=== PATIENT | male | born 1960 | race African-American/Black ===

== ENCOUNTER 2016-12-27 12:47 | Observation (INO) | payer OTHER ==
--- NOTE | ~2016-12-27 | CN ---
Consultation Report [facility] [address] [place]. [address] NAME: MARCIE ARCHIBALD : 62 STATUS : DIS Acosta PAT#: [id number] AGE: 56 ADM/REG DATE : 12/27/16 MR#: [id number] REPORT SERV DATE: 12/29/16 DICTATED BY: JUAN PABLO SMITH DATE: 12/29/16 REPORT STATUS : Draft TRANSCRIBED BY: MODL DATE: 12/29/16 NEPHROLOGY CONSULTATION DATE OF CONSULTATION: 12/29/2016 REQUESTING: Kee Bedoya M.D. REASON FOR CONSULTATION: Acute kidney injury/chronic kidney disease. HISTORY OF PRESENT ILLNESS: Mr. Archibald is a very pleasant 56-year-old -Dominican male, with previous chronic kidney disease. He was seen by Dr. Byrd in 2012, at which time creatinine was 2.4. Unfortunately, there are no office records available at this time of dictation today. He apparently lost insurance previously and did not follow up as directed with [facility]. He was admitted here on 12/27/2016, with creatinine 2.0. He underwent workup including echo, which showed ejection fraction of 35%, severe diastolic dysfunction, and moderate LVH. Renal ultrasound showed nonobstructing kidney stones and Doppler ultrasound showed normal resistive indices and no renal artery stenosis. Chest x- ray showed cardiomegaly without edema and stress test showed mild inferior ischemia. Creatinine went up to 2.3 today and cardiac catheterization was canceled. Troponin has been 0.88 to 0.92 since admission. Urinalysis has shown trace proteinuria. His ARB has been discontinued. PAST MEDICAL HISTORY: 1. Chronic kidney disease, baseline creatinine approximately 2 to 2.4 (?). 2. Hypertension, on ARB. 3. EF 35%. 4. LVH. CURRENT MEDICATIONS: Aspirin 81 mg daily, Lipitor, Imdur, Coreg, hydralazine, amlodipine, clonidine, and Pepcid. FAMILY HISTORY: No ESRD. SOCIAL HISTORY: He is single. 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 Nonsmoker. Lives in [place]. REVIEW OF SYSTEMS: Significant for events as per HPI. PHYSICAL EXAMINATION: VITAL SIGNS: Temperature 98.3, pulse 62, respirations 16, blood pressure 139/83, 98% saturation on room air. GENERAL: He is a very pleasant, middle-aged -Dominican male, awake, alert, oriented, and cooperative with the exam. He is a good historian. He is in no distress, lying flat in Consultation Report [place] [id number] [facility] [place]. [address] NAME: MARCIE ARCHIBALD : 62 STATUS : DIS Acosta PAT#: [id number] AGE: 56 ADM/REG DATE : 12/27/16 MR#: [id number] REPORT SERV DATE: 12/29/16 DICTATED BY: JUAN PABLO SMITH DATE: 12/29/16 REPORT STATUS : Draft TRANSCRIBED BY: KURT DATE: 12/29/16 his hospital stretcher. HEENT: Sclerae without icterus. Conjunctivae not injected. Oropharynx is clear. NECK: No JVD. LUNGS: He has clear lungs anteriorly without dyspnea or tachypnea on room air. HEART: Regular rate and rhythm with audible S4. ABDOMEN: Soft, nontender, nondistended. Bowel sounds present throughout. No rebound or guarding. EXTREMITIES: With trace edema. SKIN: Without rash. PSYCHIATRIC: Mood and affect are appropriate. : Deferred. There is no Sparks catheter in place. NEURO: Grossly nonfocal. MUSCULOSKELETAL: Shows no gout or tenosynovitis. LABORATORY DATA: Sodium 139, potassium 3.2, bicarbonate 26, BUN 32, creatinine 2.3. GFR 35 mL/minute. Calcium 8.9, magnesium 2.1, phosphorus 2.8, albumin 3.2. White count 5000, without eosinophilia. INR 1.1. Hemoglobin 12.7, platelets 274,000. ASSESSMENT AND PLAN: Mr. Archibald has stage 3 chronic kidney disease, hypertension, left ventricular hypertrophy, ejection fraction of 35%, proteinuria, and abnormal stress test. I suspect his proteinuria, chronic kidney disease, and echo findings most likely represent longstanding poorly controlled hypertension and resultant nephrosclerosis (?). No need for renal biopsy at this time. Agree with holding ARB. His baseline creatinine is unknown to me at this time. His cardiac catheterization has been canceled and he is scheduled to go home later today. He will need close outpatient followup with Nephrology in the future. This was stressed to him in great detail. I think it is reasonable at this time to discharge as long as he follows up in the office. Another consideration is hyperaldosteronism with his alkalosis and hypokalemia. We will check renin and aldosterone levels and consider addition of Inspra as an outpatient should he remain hypokalemic. NC/MODL Juan Pablo Smith M.D. / [id number] CC: Kee Bedoya M.D.
--- NOTE | ~2016-12-27 | PRECARD ---
H&P [facility] [address] [place]. [address] NAME: MARCIE ARCHIBALD : 62 STATUS : ADM Acosta PAT#: [id number] AGE: 56 ADM/REG DATE : 12/27/16 MR#: [id number] REPORT SERV DATE: 12/27/16 DICTATED BY: KAYKAY JEONG DATE: 12/27/16 REPORT STATUS : Draft TRANSCRIBED BY: MODVale DATE: 12/27/16 DATE OF ADMISSION: 12/27/2016 CHIEF COMPLAINT: Palpitations. REASON FOR ADMISSION: Abnormal troponin. SOURCE: The patient and the chart. HISTORY OF PRESENT ILLNESS: Mr. Archibald is a very pleasant 56-year-old black man with a history of hypertension and chronic kidney disease, who reports he had a cardiac catheterization in 2003, which revealed no blockages. He was in his usual state of health until yesterday and today when he noticed heart fluttering on and off lasting about 45 seconds at a time. He did not have any syncope or dizziness. He did not have any chest pain at any time. He has not had any shortness of breath. No swelling. His blood pressure went up to 210/130. He came to [facility], where a troponin was drawn and it was abnormal at 0.99, and he was admitted to Cardiology. REVIEW OF SYSTEMS: All other systems are negative. ALLERGIES: NO KNOWN DRUG ALLERGIES. MEDICATIONS: As per his home list, included amlodipine, clonidine, metoprolol, and valsartan HCT. CARDIAC RISK FACTORS: Hypertension, former tobacco. Denies diabetes, cholesterol, or family history. FAMILY HISTORY: Father had myocardial infarction in his 80s. SOCIAL HISTORY: The patient lives in [place]. He is single. He has six children, alive and well. 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 PAST MEDICAL HISTORY: Significant for congestive heart failure diagnosed 4 years ago. Cardiac catheterization in 2003 at [place] revealed no blockages. Chronic kidney disease and status post herniorrhaphy. PHYSICAL EXAMINATION: GENERAL: He is well-developed, well-nourished, obese middle-aged black man, in no acute distress. VITAL SIGNS: Blood pressure is 171/103, pulse 73, and temperature 97.2. HEENT: Sclerae anicteric. Lips without cyanosis. Carotids 2+ and symmetrical. No bruits. No JVD. No thyromegaly. LUNGS: Clear to auscultation. No use of accessory muscles. HEART: Regular rate and rhythm without murmur, gallop, or rub. H&P [address] [address] NAME: MARCIE ARCHIBALD : 62 STATUS : ADM Acosta PAT#: [id number] AGE: 56 ADM/REG DATE : 12/27/16 MR#: [id number] REPORT SERV DATE: 12/27/16 DICTATED BY: KAYKAY JEONG DATE: 12/27/16 REPORT STATUS : Draft TRANSCRIBED BY: MODL DATE: 12/27/16 ABDOMEN: Positive bowel sounds. Soft, nontender. EXTREMITIES: Pulses are 2+ and symmetrical. No cyanosis, clubbing, or edema. BACK: No CVA tenderness. MUSCULOSKELETAL: Good tone. NEURO: Alert and oriented x3. EKG: Reveals normal sinus rhythm, possible left atrial enlargement. Left ventricular hypertrophy. LABORATORY EXAMINATION: Sodium 137, potassium 3.5, chloride 99, CO2 is pending, BUN 22, creatinine 1.98, and glucose 71. White count 6.6, hemoglobin 14.1, hematocrit 42.0, and platelets 302,000. TSH is 0.619. Troponin of 0.99. CPK and MB are not yet available. IMPRESSION: 1. Palpitations of unclear significance. 2. Abnormal troponin of unclear significance. 3. Hypertension with left ventricular hypertrophy by EKG, under suboptimal control. 4. Acute kidney injury on chronic kidney disease. 5. History of congestive heart failure with unknown left ventricular systolic function. 6. Obesity. 7. Former tobacco use. RECOMMENDATIONS: 1. Check serial EKGs and enzymes. 2. Telemetry. 3. Antihypertensive therapy. 4. Stop valsartan HCT. 5. Cautious IV fluid volume repletion. 6. Echocardiogram. 7. Renal ultrasound and renal artery ultrasound to look for any evidence of renal artery stenosis. 8. Check CPK and MB in addition to troponin q.8 h. x3. 9. EKG in a.m. 10.Further recommendations following the above. ANNE/MODL Kaykay Jeong M.D. / [id number] CC: Kaykay Jeong M.D.
[2016-12-27 13:51] LABS: BASOPHILS 0.5 %; BASOPHILS ABSOLUTE 0.03 10/3/uL (0.0-0.16); EOSINOPHILS 0.3 %; EOSINOPHILS ABSOLUTE 0.02 10/3/uL (0.0-0.53); ER CBC TAT 0 Hrs 05 Mins; HEMOGLOBIN 14.1 g/dL (13.6-17.8); IMMATURE GRANULOCYTES 0.2 %; IMMATURE GRANULOCYTES ABSOLUTE 0.01 10/3/uL (0.0-0.11); LYMPHOCYTES ABSOLUTE 0.99 10/3/uL (0.67-4.30); MANUAL DIFF NO %; MEAN CORPUS HGB CONC 33.6 g/dL (32.0-36.0); MEAN CORPUSCULAR VOLUME 80.5 fL (80-100); MEAN PLATELET VOLUME 10.1 fL (9.2-13.0); MONOCYTES 7.3 %; MONOCYTES ABSOLUTE 0.48 10/3/uL (0.21-1.20); NEUTROPHILS 76.7 %; NEUTROPHILS ABSOLUTE 5.07 10/3/uL (2.02-8.40); PLATELET COUNT 302 10/3/uL (150-400); RBC DISTRIBUTION WIDTH 14.4 % (12.0-16.0); RED CELL COUNT 5.22 10/6/uL (4.7-6.1); WHITE BLOOD CELLS 6.6 10/3/uL (4.5-10.5)
[2016-12-27 14:03] LABS: INTERNATIONAL NORMAL RATI 1.1 UNITS (-); PARTIAL THROMBO TIME 24.6 SEC (22.5-37.2); PROTIME (NOT ORD) 13.8 SEC (12.0-14.5)
[2016-12-27 14:18] LABS: BUN (BLOOD UREA NITROGEN) 22 MG/DL (6-23); CALCIUM, SERUM 9.5 MG/DL (8.5-10.4); CHLORIDE, SERUM 99 MMOL/L (96-112); CO2 (CARBON DIOXIDE) 25 MMOL/L (24-34); CREATININE 1.98 MG/DL (0.70-1.30); GFR AFRICAN AMERICAN 43 ML/MIN (>=60); GFR NON AFRICAN AMERICAN 37 ML/MIN (>=60); GLUCOSE, SERUM 71 MG/DL (60-99); POTASSIUM, SERUM 3.5 MMOL/L (3.5-5.3); SODIUM, SERUM 137 MMOL/L (135-148); ULTRASENSITIVE TSH 0.619 MCIU/ML (0.358-3.740)
[2016-12-27 14:19] LABS: CHEST PAIN PROFILE TAT 0 Hrs 33 Mins; TROPONIN I 0.99 NG/ML (<0.05)
[2016-12-27] MEDS ORDERED: LOP100 PO (14:44)
[2016-12-27] MEDS ORDERED: DIOVAN HCT320 MG/25 PO (14:45)
[2016-12-27] MEDS ORDERED: CAT1 PO (14:45)
[2016-12-27] MEDS ORDERED: NORV10 PO (14:45)
[2016-12-27 19:29] LABS: CK-MB 3.3 NG/ML; CPK 314 U/L (0-200)
[2016-12-27 22:27] LABS: CPK 285 U/L (0-200)
[2016-12-27 22:28] LABS: CK-MB 2.7 NG/ML; TROPONIN I 0.92 NG/ML (<0.05)
[2016-12-28 05:54] LABS: BASOPHILS 0.4 %; BASOPHILS ABSOLUTE 0.02 10/3/uL (0.0-0.16); EOSINOPHILS 1.2 %; EOSINOPHILS ABSOLUTE 0.06 10/3/uL (0.0-0.53); HEMATOCRIT 38.2 % (40.0-51.0); HEMOGLOBIN 12.7 g/dL (13.6-17.8); IMMATURE GRANULOCYTES 0.6 %; IMMATURE GRANULOCYTES ABSOLUTE 0.03 10/3/uL (0.0-0.11); LYMPHOCYTES 25.4 %; LYMPHOCYTES ABSOLUTE 1.27 10/3/uL (0.67-4.30); MEAN CORPUS HGB CONC 33.2 g/dL (32.0-36.0); MEAN CORPUSCULAR HEMOGLOB 26.8 pg (26.0-34.0); MEAN CORPUSCULAR VOLUME 80.6 fL (80-100); MONOCYTES 11.6 %; MONOCYTES ABSOLUTE 0.58 10/3/uL (0.21-1.20); NEUTROPHILS 60.8 %; NEUTROPHILS ABSOLUTE 3.04 10/3/uL (2.02-8.40); PLATELET COUNT 274 10/3/uL (150-400); RBC DISTRIBUTION WIDTH 14.4 % (12.0-16.0); RED CELL COUNT 4.74 10/6/uL (4.7-6.1)
[2016-12-28 05:56] LABS: MANUAL DIFF NO %
[2016-12-28 06:13] LABS: CALCIUM, SERUM 8.9 MG/DL (8.5-10.4); CHLORIDE, SERUM 103 MMOL/L (96-112); CHOL/HDL RATIO(NOT ORDER) 2.6 (0-5); CHOLESTEROL 211 MG/DL (< 200); CO2 (CARBON DIOXIDE) 26 MMOL/L (24-34); CPK 243 U/L (0-200); CREATININE 2.25 MG/DL (0.70-1.30); GFR AFRICAN AMERICAN 37 ML/MIN (>=60); GFR NON AFRICAN AMERICAN 32 ML/MIN (>=60); GLUCOSE, SERUM 84 MG/DL (60-99); HDL CHOLESTEROL 80 MG/DL (> 39); LDL CHOLESTEROL 115 MG/DL (< 130); NON-HDL CHOLESTEROL 131 MG/DL (< 160); POTASSIUM, SERUM 3.4 MMOL/L (3.5-5.3); SGPT(ALT) 22 U/L (5-65); SODIUM, SERUM 139 MMOL/L (135-148); TRIGLYCERIDE 81 MG/DL (< 150)
[2016-12-28 06:15] LABS: BUN (BLOOD UREA NITROGEN) 29 MG/DL (6-23); CK-MB 2.4 NG/ML; TROPONIN I 0.88 NG/ML (<0.05)
[2016-12-29 01:22] LABS: ASCORBIC ACID (UR NOT ORDER) NEG (NEG); BILIRUBIN, URINE NEGATIVE (NEG); KETONE, URINE NEGATIVE (NEG); LEUKOCYTE ESTERASE(NOT OR NEG (NEG); WBC (NOT ORDERED) (RFLEX) 1 (0-5)
[2016-12-29 04:20] LABS: ALBUMIN 3.2 G/DL (3.5-5.0); BUN (BLOOD UREA NITROGEN) 32 MG/DL (6-23); CALCIUM, SERUM 8.9 MG/DL (8.5-10.4); CHLORIDE, SERUM 103 MMOL/L (96-112); CO2 (CARBON DIOXIDE) 26 MMOL/L (24-34); CREATININE 2.33 MG/DL (0.70-1.30); GFR AFRICAN AMERICAN 35 ML/MIN (>=60); GFR NON AFRICAN AMERICAN 30 ML/MIN (>=60); PHOSPHORUS, SERUM 2.8 MG/DL (2.5-4.5); POTASSIUM, SERUM 3.2 MMOL/L (3.5-5.3); SODIUM, SERUM 139 MMOL/L (135-148)
[2016-12-29 04:23] LABS: GLUCOSE, SERUM 109 MG/DL (60-99)
[2016-12-29] MEDS ORDERED: LIPITOR40 PO (17:44)
[2016-12-29] MEDS ORDERED: COREG25 PO (17:45)
[2016-12-29] MEDS ORDERED: APRES25 PO (17:45)
[2016-12-29] MEDS ORDERED: IMDUR30 PO (17:46)
== END 2016-12-29 18:35 | disposition home or self-care (01) ==
LOC: ER 12:47 → CDU1 16:16 → CDU2 17:01
PROVIDERS: Emergency Medicine; Internal Medicine Cardiovascular Disease; Nurse Practitioner Family
DX: I13.0 Hypertensive heart and chronic kidney disease with heart failure and stage 1 through stage 4 chronic kidney disease, or unspecified chronic kidney disease (principal); N18.3 Chronic kidney disease, stage 3 (moderate); I50.1 Left ventricular failure, unspecified; N17.9 Acute kidney failure, unspecified; R79.89 Other specified abnormal findings of blood chemistry; E66.9 Obesity, unspecified; Z87.891 Personal history of nicotine dependence
CPT/HCPCS: 71020; 76775; 78452; 80048; 80061; 80069; 81001; 82550; 82553; 82962; 83735; 84443; 84460; 84484; 85025; 85610; 85730; 93005; 93017; 93306; 93975; 96376; 99285; A9270-GY; A9502; G0378; J0360